=== PATIENT | female | born 1965 ===

== ENCOUNTER 2021-10-12 11:21 | Outpatient (CLI) | payer BC, OTHER ==
--- NOTE | 2021-10-12 14:01 | Ultrasound Report ---
PROCEDURE: Abdomen Limited INDICATIONS: Abnormal liver function tests TECHNIQUE: Real-time focused scanning was performed of the abdomen, with image documentation. COMPARISON: None FINDINGS: Diffusely increased hepatic parenchymal echogenicity. Normal hepatic echotexture. No focal hepatic ma ss. Smooth hepatic contour. No intrahepatic or extrahepatic biliary ductal dilatation. The common duct measures approximately 3 m m at the wong hepatis. Status post cholecystectomy. Right kidney is unremarkable without hydronephrosis or shadowing calculus demonstrated. Visualized portions of the pancreas are normal in appearance. IMPRESSION: Increased hepatic parenchymal echogenicity which likely reflects moderate hepatic steatosis. No significant abnormality otherwise. Status post cholecystectomy. Reviewed by: Hermann Ribera MD on 10/12/2021 2:00 PM PST Approved by: Hermann Ribera MD on 10/12/2021 2:00 PM PST Station ID: [id number]
== END 2021-10-12 11:22 | disposition home or self-care (01) ==
LOC: DI 11:21
PROVIDERS: ATTEND Physician Assistant
DX: R94.5 Abnormal results of liver function studies (principal); R93.2 Abnormal findings on diagnostic imaging of liver and biliary tract; Z90.49 Acquired absence of other specified parts of digestive tract

== ENCOUNTER 2021-11-23 08:04 | Outpatient (CLI) | payer BC ==
[2021-11-23] MEDS ORDERED: GADOBUTROL 15 MMOL/15 ML VIAL ONE (08:19)
--- NOTE | 2021-11-23 13:43 | MRI Report ---
PROCEDURE: MRCP W/WO INDICATIONS: ABN US, CYSTIC LESION CONTRAST: IV CONTRAST: Gadavist ml: 9.6 TECHNIQUE: Coronal ultra fast SE through the abdomen, axial 2-D spoiled GE in- and [id number], and breath-hold T2 FSE with fat saturation through the biliary system and pancreas. Oblique coronal and axial thin- slice ultra fast SE, radial thick-slab ultra fast SE centered on the extrahepatic bile ducts. COMPARISON: Ultrasound 10/12/21 FINDINGS: Image quality: Excellent. Pancreas and biliary system: There is a partially exophytic 1.1 cm nodule in the ventral pancreatic h ead demonstrating mildly decreased T1 and mildly increased T2 signal. Postcontrast there is early art erial enhancement above background parenchyma. There is gradually decreasing enhancement over venous and delayed phases. Pancreatic contours and signal are otherwise normal. No pancreatic ductal dilatat ion. Intra and extrahepatic bile ducts are normal. Other solid organs: Liver and spleen are both mildly elongated. The liver measures at least 19.1 cm in length and the spleen measures 13.7 cm. There is mild to moderate diffuse signal loss on T1 out of phase imaging within the liver. The subcentimeter cyst is present in segment V of the liver. The gal lbladder is surgically absent.. No adrenal nodules. Both kidneys are normal in size, without hydron ephrosis. Nodes and vessels: There are a few minimally prominent wong hepatis and peripancreatic lymph nodes, largest of pancreatic head measures 1.0 cm in short axis. No retroperitoneal or mesenteric adenopathy by size criteria. Aorta and inferior vena cava are normal in size. Bowel and peritoneum: Unenhanced bowel loops are normal in caliber. No free fluid. Lung bases: No basal pleural effusions. Heart size is normal. Bones and soft tissues: No ventral hernias. Bone marrow is of normal overall signal. IMPRESSION: 1. 1.1 cm hyperenhancing, partially exophytic solid pancreatic head nodule. Differential diagnosis in cludes neuroendocrine tumor, or less likely adenocarcinoma. Correlate with lab values and consider en doscopic tissue acquisition. 2. Hepatosplenomegaly and mild to moderate hepatic steatosis. 3. Equivocal, borderline peripancreatic lymph nodes. Reviewed by: Roseann Epstein MD on 11/23/2021 1:42 PM PDT Approved by: Roseann Epstein MD on 11/23/2021 1:42 PM PDT Station ID: [id number]
[2021-11-23] MEDS ORDERED: GADOBUTROL 15 MMOL/15 ML VIAL IVP ONE (16:49)
== END 2021-11-23 08:05 | disposition home or self-care (01) ==
LOC: DI 08:04
PROVIDERS: ATTEND Internal Medicine
DX: K86.9 Disease of pancreas, unspecified (principal); R16.2 Hepatomegaly with splenomegaly, not elsewhere classified; K76.0 Fatty (change of) liver, not elsewhere classified
CPT/HCPCS: 74183; A9585

== ENCOUNTER 2023-02-23 09:12 | Outpatient (CLI) | payer BC ==
--- NOTE | 2023-02-23 12:54 | CT Report ---
PROCEDURE: Low Dose Lung Cancer Screen INDICATIONS: FORMER SMOKER TECHNIQUE: A CT scan of the chest was performed. Intravenous contrast media was not administered. Images were re corded and evaluated at appropriate window settings. Reformats: axial MIP of the chest, coronal and s agittal. For radiation dose reduction, the following was used: automated exposure control, adjustment of mA and/or kV according to patient size. COMPARISON: None. FINDINGS: Image quality: Excellent. Prior cancer history: No. Lungs and pleura: No pleural effusions. No pneumothorax. No suspicious pulmonary nodules which requi re follow up. Mediastinum: Heart size is normal. No pericardial effusion. No large vessel abnormality. No mediastin al adenopathy by size criteria. No significant coronary calcifications. Chest wall and lower neck: Thyroid is unremarkable. No axillary or supraclavicular adenopathy by size . Bones: No aggressive osseous abnormality. Upper Abdomen: Unremarkable. IMPRESSION: Lung RAD: 1 - Negative. Recommendation: Continue annual screening in 12 Months with LDCT Non-Lung Significant Findings: None. Reviewed by: Michael Griffith on 02/23/2023 12:52 PM PDT Approved by: Michael Griffith on 02/23/2023 12:52 PM PDT Station ID: [id number]
== END 2023-02-23 09:13 | disposition home or self-care (01) ==
LOC: DI 09:12
PROVIDERS: ATTEND Physician Assistant
DX: Z12.2 Encounter for screening for malignant neoplasm of respiratory organs (principal); Z87.891 Personal history of nicotine dependence